=== PATIENT | female | born 2000 | race Caucasian/White ===

== ENCOUNTER 2024-07-22 07:22 | Outpatient (CLI) | payer BC, SELFPAY ==
[2024-07-22 08:02] VITALS: RESP 15; TEMP 36.6; O2SAT 99
[2024-07-22 08:06] VITALS: BP 108/64; PULSE 88
[2024-07-22 08:07] VITALS: PULSE 92; O2SAT 99
[2024-07-22 08:15] VITALS: BMI 26.2
[2024-07-22 08:31] LABS: Color, Urine Red (Yellow); Glucose, Dipstick Normal (Normal); Ketone-Dipstick Negative (Negative); Leukocyte Esterase-Dipstick 100 /ul (Negative); Nitrite-Dipstick Negative (Negative); Occult Blood-Urine 250 /ul (Negative); Protein-Dipstick 100 mg/dl (Negative); Specific Gravity, Urine 1.015 (1.002-1.030); Urine Bilirubin Dipstick Negative (Negative); Urine Clarity Cloudy (Clear); Urine Urobilinogen Normal (Normal)
--- NOTE | 2024-07-22 08:54 | OB.TRI.NOTE ---
HPI - General General Date of Admission: 07/22/24 Date of Service: 07/22/24 Chief Complaint: blood with wiping HPI Narrative WILFREDO LAI, is a 23 F who presents blood with wiping and in toilet water. States this has happened before with soda. She did have a mountain dew yesterday. No blood in under or vaginally. UA with gross blood. No nitrites. Encourage to no consume soda products. Increase PO water intake and can take AZO until culture results. Likely cystitis. Maternal Data Information Final JAZMIN: 11/30/24 Gestational age: 21 PFSH PFSH Home Medications ?Medication ?Instructions ?Recorded ?Last Taken ?Type vitamins-iron fumarate 65 tab 07/22/24 07/22/24 History mg iron-folic acid 1 mg tablet (Mynatal Plus) Allergy/AdvReac Type Severity Reaction Status Date / Time No Known Allergies Allergy Verified 07/22/24 09:17 NST FHR Rate Baby A Baseline: 140 NST Reactive:: Appropriate for gestational age Assessment & Plan (1) Cystitis: (2) 21 weeks gestation of : PLAN: Plan Increase fluid. AZO Prn
== END 2024-07-22 09:49 | disposition home or self-care (01) ==
LOC: WPOUT 07:34 → WP 07:35
PROVIDERS: Obstetrics & Gynecology; Referring Provider Advanced Practice Midwife; Visit Provider Advanced Practice Midwife
DX: O23.12 Infections of bladder in pregnancy, second trimester (principal); Z3A.21 21 weeks gestation of pregnancy
CPT/HCPCS: 59025; 59050; 81002; 87086; 87088; 99221; G0378

== ENCOUNTER 2024-11-01 16:44 | Inpatient (IN) | payer BC, SELFPAY ==
[2024-11-01] VITALS (13 sets, daily range): BP systolic 103–118; BP diastolic 58–78; PULSE 90–103; RESP 16–18; TEMP 36.6–36.9; O2SAT 96–100; BMI 29.2
[2024-11-01 16:39] LABS: ROM Internal Control Test YES-OK TO RESULT pt. (Internal QC)
[2024-11-01 16:40] LABS: ROM Patient Test POSITIVE (Negative)
[2024-11-01 16:41] LABS: Record Kit Lot#, ROM+ K1972
--- NOTE | 2024-11-01 16:54 | PCM.HP.OB ---
HPI - General General Date of Admission: 11/01/24 Date of Service: 11/01/24 Chief Complaint: SROM HPI Narrative WILFREDO LAI, is a 24 F who presents PROM at 2am. Clear fluid. Positive ROM. Breech. Plan for c/s Maternal Data Information Final JAZMIN: 11/29/24 Gestational age: 36 PFSH PFSH Home Medications ?Medication ?Instructions ?Recorded ?Last Taken ?Type vitamins-iron fumarate 65 tab 07/22/24 07/22/24 History mg iron-folic acid 1 mg tablet (Mynatal Plus) Allergy/AdvReac Type Severity Reaction Status Date / Time No Known Allergies Allergy Verified 07/22/24 09:17 History 1 Elective abortions Hx Para 0 Spontaneous abortions Hx # Term Pregnancies Ectopic pregnancies Hx # Pregnancies Multiple births # of living children NST FHR Rate Baby A Baseline: 130 Variability:: Moderate Accelerations:: 15 x 15 Decelerations:: None NST Reactive:: Yes FHR Category:: Category I Uterine Activity:: irregular ROS Constitutional Constitutional: Denies fatigue, fever(s) or malaise Eyes Eyes: Denies change in vision ENT HEENT: Denies dizziness or headache(s) Cardiovascular Cardiovascular: Denies chest pain, dyspnea or lightheadedness Respiratory/Chest Respiratory/Chest: Denies cough or dyspnea Gastrointestinal Gastrointestinal: Denies change in bowel habits Genitourinary Genitourinary: Denies burning urination or genital lesions Integumentary Integumentary: Denies rash Neurologic Neurologic: Denies confusion, dizziness, headache(s), numbness or weakness Vital Signs Vital Signs Vital Signs: 11/01/24 16:34 11/01/24 16:34 Pulse Rate 90 Blood Pressure 113/63 BP Systolic 113 BP Diastolic 63 Weight Weight: 77.111 kg Body Mass Index (BMI) 29.2 Physical Exam Const alert and no apparent distress General Appearance: cooperative HEENT normocephalic Resp normal respiratory effort Cardio regular rate GI soft to palpation GI Narrative: gravid, nontender, appropriate for gestational age Extremity no calf tenderness General Extremity: edema Skin no wounds Rashes: No rashes noted Psych activity/motor behavior normal Labs Labs Labs: No Data to Display Assessment & Plan (1) 36 weeks gestation of : (2) Breech presentation: QUALIFIERS: Fetus number: single or unspecified fetus Qualified Code(s): O32.1XX0 - Maternal care for breech presentation, not applicable or unspecified (3) PROM (premature rupture of membranes): QUALIFIERS: PROM gestational age: -third trimester PROM onset of labor timing: unspecified duration between rupture of membranes and onset of labor Qualified Code(s): O42.913 - premature rupture of membranes, unspecified as to length of time between rupture and onset of labor, third trimester PLAN: Plan primary c/s
[2024-11-01] MEDS: Lactated Ringers 1,000 ML 999 ML IV (17:35)
[2024-11-01] MEDS: Acetaminophen 500 MG Tablet 1000 MG PO (18:08)
[2024-11-01 18:14] LABS: Absolute Lymphocyte Count 2.65 X10^3/uL (0.83-4.51); Absolute Neutrophil Count 7.4 X10^3/uL (2.0-7.7); Basophil# 0.05 X10^3/uL; Basophil% 0.5 % (0-1); Eosinophil# 0.05 X10^3/uL; Eosinophils% 0.5 % (0-5); Hematocrit 39.3 % (37-47); Hemoglobin 13.2 g/dL (12.0-15.0); Lymphocyte # 2.65 X10^3/ul (0.83-4.51); Lymphocyte % 23.9 % (19-41); Mean Corp Hgb Conc 33.6 g/dL (32-36); Mean Corpuscular Hgb 31.8 pg (27.0-32.0); Mean Corpuscular Volume 94.7 fL (81-99); Mean Platelet Vol. 10.1 fl (6.2-12.0); Monocyte# 0.83 X10^3/uL; Monocyte% 7.5 % (0-10); NRBC Flagged by Analyzer 0 % (0-5); Neutrophil % 66.4 % (47-70); Platelet Count 267 K/mm3 (150-450); RBC Distribution Width SD 45.1 fl (35.1-43.9); Red Blood Count 4.15 M/mm3 (4.2-5.4); White Blood Count 11.1 K/mm3 (4.4-11.0)
[2024-11-01 18:42] LABS: Syphilis Antibodies Non-reactive
[2024-11-01] MEDS: Sodium Citrate/Citric Acid 30 ML UDC PO (20:11)
[2024-11-01] MEDS: Cefazolin 2 GM in 0.9% Normal Saline (100mL Bag) 100 ML IV (20:18)
[2024-11-01] MEDS: Azithromycin 500 MG in Dextrose 5%-Water (250mL Bag) 250 ML 250 MG IV (20:31)
--- NOTE | 2024-11-01 21:05 | EX.PCM.OBRPT ---
Assessment & Plan (1) PROM (premature rupture of membranes): QUALIFIERS: PROM gestational age: -third trimester PROM onset of labor timing: unspecified duration between rupture of membranes and onset of labor Qualified Code(s): O42.913 - premature rupture of membranes, unspecified as to length of time between rupture and onset of labor, third trimester (2) Breech presentation: QUALIFIERS: Fetus number: single or unspecified fetus Qualified Code(s): O32.1XX0 - Maternal care for breech presentation, not applicable or unspecified (3) S/P : Maternal Data Information Final JAZMIN: 11/29/24 Gestational age: 36 Operative Report (OB) Cecarean Details Procedure Type: low transverse Date of Procedure: 11/01/24 Procedure Start Time: 20:39 Procedure Stop Time: 21:15 Time of Delivery: 20:43 Pre-Operative Diagnosis: Breech (PPROM) Post-Operative Diagnosis: Same as Pre-operative diagnosis Classification: SHRUTHI Type of Anesthesia: Spinal Antibiotic Given: Ancef 2 grams IV x1 and Zithromax 500 mg/5 mL X1 Drain: Rodriguez to straight drain Estimated Blood Loss: 500 cc Findings Description of surgery: Patient taken to the OR where spinal anesthesia and rodriguez were placed. Vaginal prep was performed. She was prepped and draped in the normal sterile fashion. A Pfannenstiel incision was made and carried down to the underlying fascia. The fascia was incised in the midline and extended laterally. The fascia was dissected from the muscle. The muscles divided in the midline. The peritoneum was entered bluntly and extended manually. A bladder blade was placed. A bladder flap was created. A low transverse incision was made and extended bluntly. The hips were elevated and brought through the incision. The body and head followed easily. The infant cried upon delivery. The cord was cut and clamped. The placenta was delivered with layla traction. The uterus was exteriorized and cleared of all clot and debris. The incision was repaired with 1-0 Vicryl x 2. The uterus was returned the abdomen. The gutter cleared of all clots. The peritoneum was closed with 2-0 Monocryl. The fascia was closed with 1-0 Vicryl. The subcutaneous tissue was reapproximated with 2-0 Monocryl The skin was closed with 4-0. I performed the major parts of the procedure with the RFNA assisting with retraction and closing the skin. The sponge lap and needle count was correct x 2 Surgical findings: normal uterus tubes and ovaries, breech Presentation: Complete Breech Amniotic Membrane Rupture Type: Spontaneous Amniotic Fluid Description: Clear Placental Delivery Description: Expressed Placenta Disposition: [facility] Specimen collected: No Cord Vessel Description: 3 Vessels Cord Entanglement: None A gender: Female (1 minute): 8 (5 minute): 9 Delayed Cord Clamping: Yes Billing Rep embedder: Yes Plastic Surgery Nurse: Akshat Epstein Tasks completed by first beater: Opening & closing and Retracting Additional administrative assistant receptionist?: No Complications Complications: No
[2024-11-01] MEDS: Oxytocin 15 Units/NS 250ml 15 UNITS/250 ML IV.SOLN 83 UNITS IV (21:40)
[2024-11-01] MEDS: Ketorolac 30 MG/ML Syringe IV (22:25)
[2024-11-01] MEDS: Lactated Ringers 1,000 ML 100 ML IV (22:28)
[2024-11-02] VITALS (10 sets, daily range): BP systolic 97–114; BP diastolic 62–85; PULSE 77–100; RESP 16; TEMP 36.1–36.6; O2SAT 96–100
[2024-11-02] MEDS: Acetaminophen 500 MG Tablet 1000 MG PO ×4 (00:24→19:27)
[2024-11-02] MEDS: Ketorolac 30 MG/ML Syringe IV ×3 (04:36→16:25)
[2024-11-02] MEDS: 0.9% Saline Lock 10 ML Syringe IV ×3 (04:36→16:25)
[2024-11-02 05:02] LABS: Hematocrit 37.7 % (37-47); Hemoglobin 12.7 g/dL (12.0-15.0); Mean Corp Hgb Conc 33.7 g/dL (32-36); Mean Corpuscular Hgb 31.9 pg (27.0-32.0); Mean Corpuscular Volume 94.7 fL (81-99); Mean Platelet Vol. 9.8 fl (6.2-12.0); Platelet Count 279 K/mm3 (150-450); RBC Distribution Width CV 12.8 % (11.6-14.6); RBC Distribution Width SD 44.4 fl (35.1-43.9); Red Blood Count 3.98 M/mm3 (4.2-5.4); White Blood Count 16.2 K/mm3 (4.4-11.0)
--- NOTE | 2024-11-02 07:19 | PN.OBGYN_ITS ---
Subjective Subjective Doing well. Ambulating and voiding without difficulty. Mild lochia. Breast feeding. Objective Data Objective Data Vital Signs: Vital Signs Temp Pulse Resp BP Pulse Ox O2 Del Method 97.0 F L 95 16 98/62 96 Room Air 11/02/24 04:50 11/02/24 06:37 11/02/24 06:37 11/02/24 04:50 11/02/24 06:37 11/02/24 06:37 Oxygen Delivery Method Room Air Weight: 77.111 kg Body Mass Index (BMI) 29.2 Intake & Output: Intake and Output for Last 24 Hours 10/31/24 11/01/24 11/02/24 23:59 23:59 23:59 Intake Total 1465 / 1465 852.33 / 852.33 Output Total 1200 / 1200 Balance 265 / 265 852.33 / 852.33 Lab / Micro Data 11/02/24 04:25 Labs: Laboratory Results - last 24 hr 11/01/24 16:25: Vag Amniotic Fld Detect POSITIVE H 11/01/24 17:35: WBC 11.1 H, RBC 4.15 L, Hgb 13.2, Hct 39.3, MCV 94.7, MCH 31.8, MCHC 33.6, RDW Std Deviation 45.1 H, RDW Coeff of Winifred 13.0, Plt Count 267, MPV 10.1, Immature Gran % (Auto) 1.200 H, Neut % (Auto) 66.4, Lymph % (Auto) 23.9, [place] % (Auto) 7.5, Eos % (Auto) 0.5, Baso % (Auto) 0.5, Absolute Neuts (auto) 7.4, Absolute Lymphs (auto) 2.65, Nucleated RBC % 0, Syphilis Total Ab Non- reactive, Blood Type O POSITIVE, Antibody Screen NEGATIVE 11/02/24 04:25: WBC 16.2 H, RBC 3.98 L, Hgb 12.7, Hct 37.7, MCV 94.7, MCH 31.9, MCHC 33.7, RDW Std Deviation 44.4 H, RDW Coeff of Winifred 12.8, Plt Count 279, MPV 9.8 Micro: Microbiology 11/01/24 16:25 Genital vaginal Group B Streptococcus (PCR) - Final ROS Constitutional Constitutional: Denies fatigue, fever(s) or malaise Eyes Eyes: Denies change in vision ENT HEENT: Denies dizziness or headache(s) Cardiovascular Cardiovascular: Denies chest pain, dyspnea or lightheadedness Respiratory/Chest Respiratory/Chest: Denies cough or dyspnea Gastrointestinal Gastrointestinal: Denies change in bowel habits Genitourinary Genitourinary: Denies burning urination or genital lesions Integumentary Integumentary: Denies rash Neurologic Neurologic: Denies confusion, dizziness, headache(s), numbness or weakness Physical Exam Const alert General Appearance: cooperative GI GI Narrative: soft, moderate distention, fundus firm, appropriately tender. Abdominal bandage clean dry and intact Extremity General Extremity: edema bilateral Assessment & Plan (1) S/P : (2) PROM (premature rupture of membranes): QUALIFIERS: PROM onset of labor timing: unspecified duration between rupture of membranes and onset of labor PROM gestational age: - third trimester Qualified Code(s): O42.913 - premature rupture of membranes, unspecified as to length of time between rupture and onset of labor, third trimester (3) Breech presentation: QUALIFIERS: Fetus number: single or unspecified fetus Qualified Code(s): O32.1XX0 - Maternal care for breech presentation, not applicable or unspecified PLAN: Plan Routine care
[2024-11-02] MEDS: Senna/Docusate Sodium 1 Tablet PO (10:17)
[2024-11-02] MEDS: Ibuprofen 600 MG Tablet PO (22:35)
[2024-11-03 01:58] VITALS: BP 109/78; PULSE 80; RESP 16; TEMP 36.3; O2SAT 98
[2024-11-03] MEDS: Acetaminophen 500 MG Tablet 1000 MG PO ×2 (04:21→10:30)
[2024-11-03] MEDS: Ibuprofen 600 MG Tablet PO ×2 (04:22→10:30)
[2024-11-03 08:23] VITALS: BP 112/79; PULSE 77; RESP 16; TEMP 36.6; O2SAT 98
--- NOTE | 2024-11-03 08:53 | PCM.PN.OB ---
Subjective Subjective Denies complaints Objective Data Objective Data Vital Signs: Vital Signs Temp Pulse Resp BP Pulse Ox O2 Del Method 97.8 F 77 16 112/79 98 Room Air 11/03/24 08:23 11/03/24 08:23 11/03/24 08:23 11/03/24 08:23 11/03/24 08:23 11/03/24 08:23 Oxygen Delivery Method Room Air Weight: 170 lb Body Mass Index (BMI) 29.2 Intake & Output: Intake and Output for Last 24 Hours 11/01/24 11/02/24 11/03/24 23:59 23:59 23:59 Intake Total 1465 / 1465 852.33 / 852.33 Output Total 1200 / 1200 550 / 550 Balance 265 / 265 302.33 / 302.33 Lab / Micro Data 11/02/24 04:25 Micro: Microbiology 11/01/24 16:25 Genital vaginal Group B Streptococcus (PCR) - Final Physical Exam Const alert, oriented x3 and no apparent distress HEENT normocephalic GI soft to palpation, non-tender and non-distended GI Narrative: fundus firm, mid & below umbilicus Incision - bandage c/d/i Extremity normal to inspection and no calf tenderness Assessment & Plan (1) S/P : PLAN: Plan Plan for d/c home
--- NOTE | 2024-11-03 08:54 | PCM.DC.SUM ---
Providers Date of Admission: 11/01/24 Primary Care Physician: No Primary Care Phys Reason For Visit: PRIMARY Diagnosis Discharge Diagnosis (1) S/P : Status: Acute Code(s): Z98.891 - History of uterine scar from previous surgery Plan Plan for d/c home Medications at Discharge Home Medications vitamins-iron fumarate 65 mg iron-folic acid 1 mg tablet (Mynatal Plus) 1 tab PO DAILY 07/22/24 acetaminophen 500 mg tablet 1,000 mg (2 x 500 mg) PO Q6 #0 tabs 11/03/24 ibuprofen 600 mg tablet 600 mg PO Q6H #0 tabs 11/03/24 Hospital Course Operations section Procedures None Summary of Care Provided Minutes Spent on Discharge: 15 Weight / BMI Weight Weight: 170 lb Body Mass Index (BMI) 29.2 ABG / Lab / Microbiology Data 11/02/24 04:25 Microbiology: Microbiology 11/01/24 16:25 Genital vaginal Group B Streptococcus (PCR) - Final D/C Instructions Discharge Diet: No restrictions Discharge Activity: May Shower May resume sexual activity in: 6 weeks Weight Bearing Status: Weight bearing as tolerated Call your doctor if your incision/area has: Continuous Slow Oozing, Sudden Increased Bleeding, Increased Pain/ Swelling, Increased Redness, Foul Smelling Discharge and Swelling at the incision site Call your doctor if you observe: Fever of 101 or Higher, Coldness, Increased Pain, Change in Color, Inability to urinate, Inability to have a bowel movement, Using more than 1 pad per hour, Shortness of breath, Dizziness, Fainting spells, Chest pain, Increased palpitations (irregular heartbeat), Calf discomfort and Uncontrolled pain Suture Line Care: Avoid Pulling/Pushing and Avoid Pinching/Bending Remove Dressing in: 1 week Cleanse incision/area with: Soap & Water DC O2, CPAP, BIPAP Needs Home O2 Discharge instructions: No Please Follow Up With: Sydni Campbell MD When: Follow up in 2 and 6 weeks for visits. Meaningful Use Info Meaningful Use Meaningful Use Diagnoses (Choose all that apply): None applicable Ischemic Stroke Statin Dosing Therapy Reference: STATIN DOSE THERAPY REFERENCE: * Patients > 75 years receive moderate or high dose statin therapy. * Patients 75 years or YOUNGER should receive HIGH intensity statin dose unless contraindicated. You will be required to document reason for non-treatment if statin daily dose does not meet guidelines. HIGH DOSE STATIN THERAPY DAILY Atorvastatin > than or = to 40 mg Rosuvastatin > than or = to 20 mg Amlodipine + Atorvastatin > than or = to 2.5/40 mg Ezetimibe + Simvastatin 10/80 mg Simvastatin 80mg Discharge Plan Admission Admit Date/Time: 11/01/24 16:44 Attending Provider: Sydni Campbell Primary Care Provider: Care Physician,No Primary Discharge Orders/Prescriptions Prescriptions: New acetaminophen 500 mg Tablet 1,000 mg PO Q6 Qty: 0 0RF ibuprofen 600 mg Tablet 600 mg PO Q6H Qty: 0 0RF Continued Mynatal Plus 65 mg iron- 1 mg tablet 1 tab PO DAILY Referrals / Follow Up: Care Physician,No Primary [Primary Care Provider] - Disposition Disposition (needs filled in before D/C Order can be placed): Home, Self Care
[2024-11-03] MEDS: Senna/Docusate Sodium 1 Tablet PO (10:30)
== END 2024-11-03 11:30 | disposition home or self-care (01) | DRG 788 ==
LOC: WPOUT 16:46 → WP 16:46
PROVIDERS: Admitting Provider Obstetrics & Gynecology; Referring Provider Obstetrics & Gynecology; Visit Provider Obstetrics & Gynecology
DX: O32.1XX0 Maternal care for breech presentation, not applicable or unspecified (principal); O42.913 Preterm premature rupture of membranes, unspecified as to length of time between rupture and onset of labor, third trimester; Z37.0 Single live birth; Z3A.36 36 weeks gestation of pregnancy
CPT/HCPCS: 59025; 59050; 84112; 85025; 85027; 86780; 86850; 86900; 86901; 87653; 99221; A4216; G0378; J2405